=== PATIENT | female | born 1975 | race Two or more races ===

== ENCOUNTER 2025-08-13 09:14 | Inpatient (IN) | payer OTHER ==
[~2025-08-13] VITALS: Ht 124.5 cm; Wt 61.2 kg
[2025-08-13] MEDS ORDERED: ALBUTEROL0.63 MG/3 IH (10:07)
--- NOTE | 2025-08-13 10:09 | NUR ---
PACIENTE ALERTA Y ORIENTADA POR 3. REFIERE DOLOR GENERALIZADO Y ASMA, PACIENTE CON PRESIONES FUERA DE MIRZA PARAMETROS NORMALES, PACIENTE REFIERE QUE NO SE MARTHA MIRZA MEDICAMENTOS, SE LE SHAZIA S/V Y SE UBICA.
[2025-08-13] MEDS ORDERED: FAMOTIDINE/PF 20 MG/2 ML VIAL IV ONE (10:45)
[2025-08-13] MEDS ORDERED: ONDANSETRON HCL 2 MG/ML VIAL IV ONE (10:45)
[2025-08-13] MEDS ORDERED: ENALAPRIL MALEATE 2.5 MG TABLET PO ONE (10:45)
[2025-08-13] MEDS ORDERED: FAMOTIDINE/PF 20 MG/2 ML VIAL ONE ×3 (10:48→18:22)
[2025-08-13] MEDS ORDERED: ONDANSETRON HCL 2 MG/ML VIAL ONE (10:48)
[2025-08-13] MEDS ORDERED: IPRATROPIUM BROMIDE 0.5 MG/2.5 ML AMPUL.NEB IH SCH (11:15)
[2025-08-13] MEDS ORDERED: ACETAMINOPHEN 500 MG GEL..CAP PO ONE ×2 (11:15→11:37)
[2025-08-13] MEDS ORDERED: METHYLPREDNISOLONE SOD SUCC 125 MG VIAL IV ONE (11:15)
[2025-08-13] MEDS ORDERED: ALBUTEROL SULFATE 3 ML/2.5 MG AMPUL.NEB IH SCH (11:15)
[2025-08-13] MEDS ORDERED: MAGNESIUM SULFATE IN WATER 50 ML IV ONE (11:15)
[2025-08-13] MEDS ORDERED: DIPHENHYDRAMINE HCL 50 MG/ML VIAL 1ML IV ONE (11:15)
[2025-08-13] MEDS ORDERED: ENALAPRILAT DIHYDRATE 1.25 MG/ML VIAL IV ONE ×2 (11:15→11:37)
[2025-08-13] MEDS ORDERED: IPRATROPIUM BROMIDE 0.5 MG/2.5 ML AMPUL.NEB IH ONE (11:34)
[2025-08-13] MEDS ORDERED: ALBUTEROL SULFATE 3 ML/2.5 MG AMPUL.NEB IH ONE (11:34)
[2025-08-13] MEDS ORDERED: METHYLPREDNISOLONE SOD SUCC 125 MG VIAL ONE (11:37)
[2025-08-13] MEDS ORDERED: DIPHENHYDRAMINE HCL 50 MG/ML VIAL 1ML ONE (11:37)
[2025-08-13] MEDS ORDERED: WATER FOR INJ.,BACTERIOSTATIC 30 ML VIAL IJ ONE (11:38)
[2025-08-13 12:12] LABS: BASO % 0.7 % (0.1-1.2); EOS # 0.26 (0.04-0.54); EOS % 3.6 % (0.7-7.0); LYMPH # 1.18 (1.18-3.74); LYMPH % 16.4 % (19.3-53.1); MEAN PLATELET VOLUME 9.20 fl (9.4-12.4); MONO # 0.57 (0.24-0.82); MONO % 7.9 % (4.7-12.5); NEUT # 5.12 (1.56-6.13); NEUT % 71.1 % (34.0-71.1); RED CELL DISTRIBUTION WIDTH 13.2 % (11.6-14.4)
--- NOTE | 2025-08-13 12:32 | NUR ---
PACIENTE ALERTA Y ORIEANTADA SE ORIENTA SOBRE CUIDADOS A SEGUIR, LA MISMA REFIERE ENTENDER. SE LE HACE LOTUS DE MUESTRAS, SE ADMINISTRA MEDICAMENTOS Y SE COMIENZA ACCESO VENOSO CON MEDIDAS ASEPTICAS. LA MISMA SE UBICA EN PATTI Y PERMANECE EN ESPERA POR SOWMYA X.
[2025-08-13 12:35] LABS: INR 0.98
[2025-08-13 13:16] LABS: COVID-19 AG NEGATIVE (NEGATIVE)
[2025-08-13 13:17] LABS: ALT/SGPT 21.0 U/L (12-78); AST/SGOT 13.0 U/L (15-37); BILIRUBIN TOTAL 0.89 mg/dL (0.3-1.2); BILIRUBIN,CONJUGATED 0.18 mg/dL (0.0-0.2); BUN CREA RATIO 29.0 (7.0-25.0); CREATININE SERUM 0.48 mg/dL (0.55-1.02); GFR 136.9; GLUCOSE FASTING 81.0 mg/dL (65-100); OSMOLALITY SERUM 279.0 MOSM/KG (275-295)
[2025-08-13] MEDS ORDERED: OSELTAMIVIR PHOSPHATE 75 MG CAPSULE PO SCH (17:00)
[2025-08-13] MEDS ORDERED: ACETAMINOPHEN 500 MG GEL..CAP PO PRN (17:00)
[2025-08-13] MEDS ORDERED: levoFLOXacin IN DEXTROSE 5 % 150 ML IV SCH (17:00)
[2025-08-13] MEDS ORDERED: IPRATROPIUM/ALBUTEROL SULFATE 3 ML AMPUL.NEB IH SCH (17:00)
[2025-08-13] MEDS ORDERED: FAMOTIDINE/PF 20 MG in 0.9 % SODIUM CHLORIDE 8 ML IV PUSH SCH (17:01)
[2025-08-13] MEDS ORDERED: METHYLPREDNISOLONE SOD SUCC 40 MG VIAL IV SCH (17:01)
[2025-08-13] MEDS ORDERED: MONTELUKAST SODIUM 10 MG TABLET PO SCH (17:03)
[2025-08-13] MEDS ORDERED: GUAIFEN/DEXTROMETHORPHAN/PE 10 ML BLIST.PACK PO SCH (17:03)
[2025-08-13] MEDS ORDERED: 0.9 % SODIUM CHLORIDE 1,000 ML IV SCH (17:15)
[2025-08-13 17:57] VITALS: BP 130/80
[2025-08-13] MEDS ORDERED: IPRATROPIUM/ALBUTEROL SULFATE 3 ML AMPUL.NEB IH ONE ×2 (18:17→19:39)
[2025-08-13] MEDS ORDERED: OSELTAMIVIR PHOSPHATE 75 MG CAPSULE PO ONE (18:21)
[2025-08-13] MEDS ORDERED: METHYLPREDNISOLONE SOD SUCC 40 MG VIAL ONE (18:21)
[2025-08-13] MEDS ORDERED: GUAIFEN/DEXTROMETHORPHAN/PE 10 ML BLIST.PACK PO ONE (18:22)
[2025-08-13] MEDS ORDERED: levoFLOXacin IN DEXTROSE 5 % 5 MG/ML PIGGYBAG IV ONE (18:22)
[2025-08-13 23:30] VITALS: BP 142/88; O2SAT 98
[2025-08-14] MEDS ORDERED: METHYLPREDNISOLONE SOD SUCC 40 MG VIAL ONE (00:36)
[2025-08-14] MEDS ORDERED: ACETAMINOPHEN 500 MG GEL..CAP PO ONE ×2 (00:36→08:54)
[2025-08-14] MEDS ORDERED: GUAIFEN/DEXTROMETHORPHAN/PE 10 ML BLIST.PACK PO ONE (00:36)
[2025-08-14] MEDS ORDERED: IPRATROPIUM/ALBUTEROL SULFATE 3 ML AMPUL.NEB IH ONE (01:54)
[2025-08-14 07:15] VITALS: BP 155/88; O2SAT 100
[2025-08-14] MEDS ORDERED: levoFLOXacin IN DEXTROSE 5 % 5 MG/ML PIGGYBAG IV ONE (08:54)
[2025-08-14 12:49] VITALS: BP 143/79; O2SAT 94
[2025-08-14] MEDS ORDERED: AZITHROMYCIN 500 MG VIAL IV ONE (16:00)
[2025-08-14] MEDS ORDERED: AZITHROMYCIN 500 MG VIAL IV SCH (17:00)
[2025-08-14 17:59] VITALS: BP 119/69
[2025-08-15 02:53] VITALS: BP 103/61; O2SAT 97
[2025-08-15 09:06] VITALS: BP 113/68; O2SAT 98
[2025-08-15 18:17] VITALS: BP 128/72
[2025-08-15 21:01] VITALS: BP 157/87; O2SAT 98
[2025-08-16 02:42] VITALS: BP 136/80; O2SAT 98
[2025-08-16 06:27] LABS: BASO % 0.2 % (0.1-1.2); EOS # 0.01 (0.04-0.54); EOS % 0.1 % (0.7-7.0); LYMPH # 0.77 (1.18-3.74); LYMPH % 5.6 % (19.3-53.1); MEAN PLATELET VOLUME 9.40 fl (9.4-12.4); MONO # 0.55 (0.24-0.82); MONO % 4.0 % (4.7-12.5); NEUT # 11.94 (1.56-6.13); NEUT % 86.8 % (34.0-71.1); RED CELL DISTRIBUTION WIDTH 13.8 % (11.6-14.4)
[2025-08-16 06:41] LABS: ALT/SGPT 19.0 U/L (12-78); AST/SGOT 9.0 U/L (15-37); BILIRUBIN TOTAL 0.42 mg/dL (0.3-1.2); BUN CREA RATIO 27.0 (7.0-25.0); CREATININE SERUM 0.67 mg/dL (0.55-1.02); GFR 93.16; GLOBULINA 3.4 G/DL (2.4-3.5); GLUCOSE FASTING 168.0 mg/dL (65-100); OSMOLALITY SERUM 285.0 MOSM/KG (275-295)
[2025-08-16 07:18] LABS: LYMPHOCYTE MAN 5.0 %; MONOCYTE MAN 3.0 %; NEUTROPHILS MAN 91.0 %
[2025-08-16 08:46] VITALS: BP 151/83; O2SAT 96
[2025-08-16 18:53] VITALS: BP 160/81; O2SAT 96
[2025-08-17 02:43] VITALS: BP 152/79; O2SAT 98
[2025-08-17 09:32] VITALS: BP 153/80; O2SAT 98
[2025-08-17 17:54] VITALS: BP 146/85; O2SAT 96
[2025-08-18 02:19] VITALS: BP 158/90; O2SAT 96
[2025-08-18 09:25] VITALS: BP 133/78; O2SAT 98
[2025-08-18] MEDS ORDERED: METHYLPREDNISOLONE SOD SUCC 40 MG VIAL IV SCH (17:00)
[2025-08-18 18:18] VITALS: BP 140/85; O2SAT 95
[2025-08-19 03:21] VITALS: BP 145/74; O2SAT 96
[2025-08-19 11:26] VITALS: BP 138/74; O2SAT 97
== END 2025-08-19 13:59 | disposition home or self-care (01) | DRG 194 ==
LOC: ER 09:15 → SEC-K 17:42 → MEDI 17:42 → SEC-K 08-14 08:06 → MEDJ 08-14 10:25
PROVIDERS: General Practice; Internal Medicine Infectious Disease; ADMIT Internal Medicine; ATTEND Internal Medicine
PROC: 3E0F7GC Introduction of Other Therapeutic Substance into Respiratory Tract, Via Natural or Artificial Opening (ICD-10-PCS; 2025-08-13)
PROC: BB24ZZZ Computerized Tomography (CT Scan) of Bilateral Lungs (ICD-10-PCS; principal; 2025-08-14)
DX: J10.1 Influenza due to other identified influenza virus with other respiratory manifestations (principal); J45.41 Moderate persistent asthma with (acute) exacerbation; B34.9 Viral infection, unspecified